=== PATIENT | female | born 1990 | race Caucasian/White ===

== ENCOUNTER 2017-05-30 21:51 | Emergency (ER) | payer OTHER ==
[~2017-05-30] VITALS: Ht 170.1 cm; Wt 61.7 kg
== END 2017-05-31 00:24 | disposition home or self-care (01) ==
LOC: ED 21:51
DX: N91.1 Secondary amenorrhea (principal); F17.200 Nicotine dependence, unspecified, uncomplicated; Z88.0 Allergy status to penicillin

== ENCOUNTER 2017-06-13 18:29 | Emergency (ER) | payer OTHER ==
[~2017-06-13] VITALS: Ht 170.1 cm; Wt 64.9 kg
== END 2017-06-13 20:09 | disposition home or self-care (01) ==
LOC: ED 18:29
DX: L29.9 Pruritus, unspecified (principal); T36.8X5A Adverse effect of other systemic antibiotics, initial encounter; F17.200 Nicotine dependence, unspecified, uncomplicated; Z88.0 Allergy status to penicillin; Y92.89 Other specified places as the place of occurrence of the external cause

== ENCOUNTER 2017-08-04 22:01 | Emergency (ER) | payer OTHER ==
[~2017-08-04] VITALS: Ht 170.1 cm; Wt 59.0 kg
[2017-08-04] MEDS ORDERED: IBUPROFEN600 MG PO (23:36)
== END 2017-08-05 00:26 | disposition home or self-care (01) ==
LOC: ED 22:01
DX: M25.572 Pain in left ankle and joints of left foot (principal); F17.200 Nicotine dependence, unspecified, uncomplicated; Z88.0 Allergy status to penicillin; X50.1XXA Overexertion from prolonged static or awkward postures, initial encounter; Y93.01 Activity, walking, marching and hiking; Y92.69 Other specified industrial and construction area as the place of occurrence of the external cause; Y99.9 Unspecified external cause status

== ENCOUNTER 2017-08-13 09:53 | Emergency (ER) | payer OTHER ==
[~2017-08-13] VITALS: Ht 170.1 cm; Wt 61.2 kg
[~2017-08-13 09:53] MED LIST: IBUPROFEN600 MG PO
[2017-08-13 11:19] LABS: BASO # 0.1 10*3/uL (0.0-0.1); BASO % 0.7 % (0.0-1.0); EOS # 0.4 10*3/uL (0.0-0.4); EOS % 4.4 % (1.0-4.0); HEMATOCRIT 38.6 % (37.0-47.0); HEMOGLOBIN 12.6 g/dl (12.0-16.0); LYMPH # 1.7 10*3/uL (1.3-4.4); LYMPH % 18.8 % (27.0-41.0); MEAN CORPUSCULAR HGB 31.7 pg (27.0-31.0); MEAN CORPUSCULAR HGB CONC 32.6 g/dl (33.0-37.0); MEAN PLATELET VOLUME 9.8 fl (9.6-12.3); MONO # 0.6 10*3/uL (0.1-1.0); MONO % 6.3 % (3.0-9.0); NEUT # 6.2 10*3/uL (2.3-7.9); NEUT % 69.5 % (47.0-73.0); PLATELET COUNT AUTOMATED 262 10*3/uL (130-400); RED BLOOD COUNT 3.98 10*6/uL (4.10-5.10); RED CELL DISTRI WIDTH 12.8 % (0-14.5); WHITE BLOOD COUNT 8.9 10*3/uL (4.8-10.8)
[2017-08-13 11:34] LABS: ALBUMIN 3.3 gm/dl (3.1-4.5); ALKALINE PHOSPHATASE 65 U/L (45-117); BUN 19 mg/dl (7-24); CHLORIDE 106 mmol/L (98-107); CREATININE 0.81 mg/dL (0.55-1.02); POTASSIUM 4.1 mmol/L (3.5-5.1); SGOT/AST 11 IU/L (3-35); SGPT/ALT 20 U/L (12-78); SODIUM 141 mmol/L (136-145); TOTAL PROTEIN 7.1 gm/dL (6.4-8.2)
[2017-08-13] MEDS ORDERED: ALBUTEROL2.5 MG/0.5 INH (13:00)
[2017-08-13] MEDS ORDERED: PREDNISONE10 MG PO (13:00)
[2017-08-13] MEDS ORDERED: CHERATUSSIN AC118 M1 PO (13:00)
[2017-08-13] MEDS ORDERED: ZITHROMAX250 MG PO (13:01)
== END 2017-08-13 13:13 | disposition home or self-care (01) ==
LOC: ED 09:53
PROVIDERS: Nurse Practitioner
DX: J40 Bronchitis, not specified as acute or chronic (principal); F17.200 Nicotine dependence, unspecified, uncomplicated; Z88.0 Allergy status to penicillin

== ENCOUNTER 2017-12-31 18:10 | Emergency (ER) | payer OTHER ==
[~2017-12-31] VITALS: Ht 170.1 cm; Wt 68.0 kg
[~2017-12-31 18:10] MED LIST changes: +ALBUTEROL2.5 MG/0.5 INH; +CHERATUSSIN AC118 M1 PO; +PREDNISONE10 MG PO; +ZITHROMAX250 MG PO
[2017-12-31] MEDS ORDERED: FLONASE ALLERG9.9 ML NAS (18:42)
[2017-12-31] MEDS ORDERED: ZYRTEC10 MG PO (18:42)
[2017-12-31] MEDS ORDERED: ZITHROMAX250 MG PO (18:42)
[2018-03-24] MEDS ORDERED: ZITHROMAX250 MG PO (18:56)
== END 2017-12-31 18:55 | disposition home or self-care (01) ==
LOC: ED 18:10
DX: J01.90 Acute sinusitis, unspecified (principal); F17.200 Nicotine dependence, unspecified, uncomplicated; Z88.0 Allergy status to penicillin

== ENCOUNTER 2018-05-17 23:09 | Emergency (ER) | payer OTHER ==
[~2018-05-17] VITALS: Ht 170.1 cm; Wt 63.5 kg
[~2018-05-17 23:09] MED LIST changes: +FLONASE ALLERG9.9 ML NAS; +ZYRTEC10 MG PO
[2018-05-17] MEDS ORDERED: DOXYCYCLINE100 M3 PO (23:53)
[2018-05-17] MEDS ORDERED: IBUPROFEN600 MG PO (23:53)
[2018-07-04] MEDS ORDERED: TAMIFLU 75MG CA75 MG PO (02:33)
[2018-07-04] MEDS ORDERED: ZOFRAN4 MG PO (02:33)
[2018-09-19] MEDS ORDERED: ZOFRAN4 MG PO (04:14)
[2018-09-19] MEDS ORDERED: PRILOSEC20 M1 PO (04:14)
[2018-09-19] MEDS ORDERED: DICYCLOMINE HYD10 MG PO (04:33)
== END 2018-05-18 00:29 | disposition home or self-care (01) ==
LOC: ED 23:09
DX: L02.414 Cutaneous abscess of left upper limb (principal); Z88.0 Allergy status to penicillin

== ENCOUNTER → 2018-05-21 | Outpatient (CLI) | payer OTHER ==
[~2018-05-21] MED LIST changes: +ANAPROX DS550 MG PO; +CIPRO500 MG PO; +DICYCLOMINE HYD10 MG PO; +DOXYCYCLINE100 M3 PO; +FLAGYL500 MG PO; +PRILOSEC20 M1 PO; +TAMIFLU 75MG CA75 MG PO; +ZOFRAN4 MG PO
== END | disposition home or self-care (01) ==
LOC: RESCLI 02:51
DX: J30.2 Other seasonal allergic rhinitis (principal); L02.413 Cutaneous abscess of right upper limb; F17.200 Nicotine dependence, unspecified, uncomplicated; Z71.6 Tobacco abuse counseling; Z79.899 Other long term (current) drug therapy; Z90.49 Acquired absence of other specified parts of digestive tract; Z88.0 Allergy status to penicillin

== ENCOUNTER → 2018-06-04 | Outpatient (CLI) | payer OTHER ==
[2018-06-04 08:11] LABS: BASO % 0.5 % (0.0-1.0); EOS # 0.2 10*3/uL (0.0-0.4); EOS % 2.6 % (1.0-4.0); HEMATOCRIT 42.1 % (37.0-47.0); HEMOGLOBIN 13.7 g/dl (12.0-16.0); LYMPH # 2.1 10*3/uL (1.3-4.4); MEAN CORPUSCULAR HGB 30.9 pg (27.0-31.0); MEAN CORPUSCULAR HGB CONC 32.5 g/dl (33.0-37.0); MEAN PLATELET VOLUME 10.1 fl (9.6-12.3); MONO # 0.5 10*3/uL (0.1-1.0); MONO % 6.7 % (3.0-9.0); NEUT # 4.6 10*3/uL (2.3-7.9); NEUT % 61.9 % (47.0-73.0); PLATELET COUNT AUTOMATED 255 10*3/uL (130-400); RED BLOOD COUNT 4.43 10*6/uL (4.10-5.10); RED CELL DISTRI WIDTH 12.7 % (0-14.5); WHITE BLOOD COUNT 7.4 10*3/uL (4.8-10.8)
[2018-06-04 08:49] LABS: BUN 12 mg/dl (7-24); CHLORIDE 109 mmol/L (98-107); CHOLESTEROL 217 mg/dL (<200); CREATININE 0.88 mg/dL (0.55-1.02); HDL CHOLESTEROL 37 mg/dl (40-60); LDL CHOLESTEROL 145 mg/dL (9-159); SODIUM 142 mmol/L (136-145); TRIGLYCERIDES 173 mg/dl (<150); VLDL CHOLESTEROL 35 mg/dL (6-40)
[2018-06-04 09:26] LABS: VITAMIN D, 25-HYDROXY 19.6 ng/mL (30-100)
== END | disposition home or self-care (01) ==
LOC: LAB 07:47
PROVIDERS: Internal Medicine
DX: Z72.0 Tobacco use (principal)

== ENCOUNTER → 2018-07-08 | Outpatient (CLI) | payer OTHER | END | disposition home or self-care (01) | LOC: RESCLI 01:58 | DX: E78.2 Mixed hyperlipidemia (principal); F32.1 Major depressive disorder, single episode, moderate; F41.9 Anxiety disorder, unspecified; E55.9 Vitamin D deficiency, unspecified; J02.9 Acute pharyngitis, unspecified; R05 Cough; R63.5 Abnormal weight gain; J20.8 Acute bronchitis due to other specified organisms; F17.200 Nicotine dependence, unspecified, uncomplicated; Z88.0 Allergy status to penicillin; Z79.899 Other long term (current) drug therapy ==

== ENCOUNTER 2018-11-07 18:51 | Emergency (ER) | payer OTHER ==
[~2018-11-07] VITALS: Ht 170.1 cm; Wt 89.8 kg
[~2018-11-07 18:51] MED LIST changes: -ANAPROX DS550 MG PO; -CIPRO500 MG PO; -FLAGYL500 MG PO
[2018-11-07 19:21] LABS: BILIRUBIN NEGATIVE (NEGATIVE); BLOOD TRACE-INTACT (NEGATIVE); CLARITY SL CLOUDY (CLEAR); COLOR YELLOW (YELLOW); GLUCOSE NEGATIVE (NEGATIVE); KETONE NEGATIVE (NEGATIVE); LEUKO ESTERASE NEGATIVE (NEGATIVE); NITRITE NEGATIVE (NEGATIVE); SPECIFIC GRAVITY 1.025 (1.005-1.030)
[2018-11-07 19:36] LABS: BACTERIA 1+
[2018-11-07 20:08] LABS: BASO # 0.1 10*3/uL (0.0-0.1); BASO % 0.6 % (0.0-1.0); EOS # 0.1 10*3/uL (0.0-0.4); EOS % 1.2 % (1.0-4.0); HEMATOCRIT 38.9 % (37.0-47.0); LYMPH # 2.5 10*3/uL (1.3-4.4); LYMPH % 25.2 % (27.0-41.0); MEAN CELL VOLUME 94.9 fl (81.0-99.0); MEAN CORPUSCULAR HGB 31.7 pg (27.0-31.0); MEAN CORPUSCULAR HGB CONC 33.4 g/dl (33.0-37.0); MEAN PLATELET VOLUME 10.3 fl (9.6-12.3); MONO # 0.5 10*3/uL (0.1-1.0); MONO % 4.7 % (3.0-9.0); NEUT # 6.7 10*3/uL (2.3-7.9); NEUT % 67.9 % (47.0-73.0); PLATELET COUNT AUTOMATED 268 10*3/uL (130-400); RED CELL DISTRI WIDTH 13.1 % (0-14.5); WHITE BLOOD COUNT 9.9 10*3/uL (4.8-10.8)
[2018-11-07 20:22] LABS: ALBUMIN 3.2 gm/dl (3.1-4.5); ALKALINE PHOSPHATASE 83 U/L (45-117); BUN 9 mg/dl (7-24); CHLORIDE 110 mmol/L (98-107); CREATININE 1.05 mg/dL (0.55-1.02); LIPASE 146 U/L (73-393); POTASSIUM 3.7 mmol/L (3.5-5.1); SGOT/AST 18 IU/L (3-35); SGPT/ALT 22 U/L (12-78); SODIUM 143 mmol/L (136-145); TOTAL PROTEIN 6.5 gm/dL (6.4-8.2)
[2018-11-07] MEDS ORDERED: FLAGYL500 MG PO (21:07)
[2018-11-07] MEDS ORDERED: CIPRO500 MG PO (21:07)
== END 2018-11-07 21:17 | disposition home or self-care (01) ==
LOC: ED 18:51
PROVIDERS: Physician Assistant
DX: K52.9 Noninfective gastroenteritis and colitis, unspecified (principal); Z88.0 Allergy status to penicillin; Z79.899 Other long term (current) drug therapy; Z90.49 Acquired absence of other specified parts of digestive tract

== ENCOUNTER → 2018-11-14 | Outpatient (CLI) | payer OTHER ==
[~2018-11-14] MED LIST changes: +ANAPROX DS550 MG PO; +CIPRO500 MG PO; +FLAGYL500 MG PO
== END | disposition home or self-care (01) ==
LOC: RESCLI 09:46
DX: E78.2 Mixed hyperlipidemia (principal); K52.9 Noninfective gastroenteritis and colitis, unspecified; F17.200 Nicotine dependence, unspecified, uncomplicated; Z79.899 Other long term (current) drug therapy

== ENCOUNTER 2018-12-01 22:11 | Emergency (ER) | payer OTHER ==
[~2018-12-01] VITALS: Ht 170.1 cm; Wt 86.2 kg
[~2018-12-01 22:11] MED LIST changes: -ANAPROX DS550 MG PO
[2018-12-01] MEDS ORDERED: ANAPROX DS550 MG PO (23:23)
== END 2018-12-01 23:40 | disposition home or self-care (01) ==
LOC: ED 22:11
DX: M25.512 Pain in left shoulder (principal); M71.58 Other bursitis, not elsewhere classified, other site; Z88.0 Allergy status to penicillin; Z79.899 Other long term (current) drug therapy; Z79.2 Long term (current) use of antibiotics; Z90.49 Acquired absence of other specified parts of digestive tract